=== PATIENT | male | born 1955 | race Caucasian/White ===

== ENCOUNTER 2022-10-21 18:44 | Inpatient (IN) ==
[2022-10-21] MEDS ORDERED: Lactated Ringers 1000 ml BAG 1,000 ML IV ONE ×3 (19:04→20:01)
[2022-10-21] MEDS ORDERED: cefTRIAXone 1 gm/50 mL D5W 1 GM/50 ML BAG IV ONE (19:16)
[2022-10-21] MEDS ORDERED: metroNIDAZOLE IV 500 MG/100ML 500 MG/100 ML BAG IVPB ONE (19:16)
[2022-10-21] MEDS ORDERED: Iodixanol (CONTRAST) 320 MG/ML 100 ML SDV IV ONE (19:27)
[2022-10-21 19:40] LABS: ABS Lymphocytes 0.8 10^3/ul (1.0-4.8); ABS Monocytes 0.6 10^3/ul (0-0.8); ABS Neutrophils 10.4 10^3/ul (1.5-7.7); Eosinophil % 0.1 %; Hematocrit 36 % (42-52); Hemoglobin 11.1 g/dL (14.0-18.0); Lymphocyte % 6.4 %; Mean Corpuscular HGB Conc 31 g/dL (31-36); Mean Corpuscular Hemoglobin 30 pg (27-31); Mean Corpuscular Volume 97 fL (80-94); Mean Platelet Volume 8.5 fL (7.4-10.4); Nucleated Red Blood Cells % 0.1; Platelet Count 175 10^3/uL (150-450); Red Blood Count 3.68 10^6 /uL (4.18-5.48); Red Cell Distribution Width 14 % (10-15); White Blood Count 11.8 10^3/uL (3.5-10.8)
[2022-10-21 19:58] LABS: ALT 20 U/L (7-52); AST 19 U/L (13-39); Albumin 3.1 g/dL (3.2-5.2); Albumin/Globulin Ratio 1.1 (1-3); Alcohol, S < 13 mg/dL (<13); Alkaline Phosphatase 122 U/L (35-149); Blood Urea Nitrogen 52 mg/dL (6-24); C Reactive Protein 218.73 mg/L (<8.01); CO2 Carbon Dioxide 18 mmol/L (22-32); Calcium 9.7 mg/dL (8.6-10.3); Chloride 106 mmol/L (101-111); Globulin 2.8 g/dL (2-4); Magnesium 2.8 mg/dL (1.9-2.7); Sodium 143 mmol/L (135-145); Total Protein 5.9 g/dL (6.4-8.9); eGFR CKD-EPI 30.2 (>60)
[2022-10-21] MEDS ORDERED: .Amiodarone 24HR ONLY IV Protocol Order Note IV ONE (20:00)
[2022-10-21] MEDS ORDERED: Amiodarone 150 mg IVPREMIX 150 MG/100 ML BAG IV ONE (20:00)
[2022-10-21 20:01] LABS: Anion Gap 19 mmol/L (2-11); Potassium 5.3 mmol/L (3.5-5.0)
[2022-10-21 20:04] LABS: High Sens Troponin Baseline 161 pg/mL (<20)
[2022-10-21] MEDS ORDERED: Amiodarone 360 MG IVPREMIX 360 MG/200 ML BAG IV SCH (20:10)
[2022-10-21 20:18] LABS: PCO2 Arterial 33 mmHg (35-45); PO2 Arterial 90 mmHg (80-100)
[2022-10-21] MEDS ORDERED: Dextrose 50% Syringe 50 ml 25 GM/50 ML SYRINGE IV PUSH PRN (20:23)
[2022-10-21 20:54] LABS: High Sensitivity Troponin 1 Hr 139 pg/mL (<20)
[2022-10-21] MEDS ORDERED: Insulin Infusion 100unit/100mL 100 UNIT/100 ML BAG IV SCH (21:00)
[2022-10-21 21:04] LABS: Glucose 834 mg/dL (70-100)
[2022-10-22] MEDS ORDERED: Vancomycin 1,000 MG in NS 0.9% 250 ml 250 ML IVPB ONE (00:39)
[2022-10-22] MEDS: NS 0.45% 1000 ml BAG 1,000 ML IV SCH ×5 (00:44→16:58)
[2022-10-22 00:45] LABS: Urine Appearance Slightly Cloudy; Urine Color Yellow
[2022-10-22 00:46] LABS: Urine Bilirubin Negative (Negative); Urine Glucose 3+ (>=1000 mg/dL) (Negative); Urine Ketones Negative (Negative); Urine Nitrite Negative (Negative); Urine Protein Negative (Negative); Urine Urobilinogen 0.2 (Negative) (Negative)
[2022-10-22 00:59] LABS: Glucose Confirmatory 419 mg/dL (70-100)
[2022-10-22 01:04] LABS: Urine Bacteria Absent (Absent); Urine Red Blood Cell 3+(>10/hpf) (Absent); Urine White Blood Cell 3+(>20/hpf) (Absent)
[2022-10-22 01:14] LABS: Calcium 8.8 mg/dL (8.6-10.3); Potassium 3.9 mmol/L (3.5-5.0); eGFR CKD-EPI 38.7 (>60)
[2022-10-22] MEDS ORDERED: Amiodarone 360 MG IVPREMIX 360 MG/200 ML BAG IV SCH (02:10)
[2022-10-22] MEDS: DOLUTEGRAVIR PO SCH ×2 (02:21→21:20)
[2022-10-22] MEDS: ABACAVIR PO SCH ×2 (02:21→21:20)
[2022-10-22] MEDS: LAMIVUDI PO SCH ×2 (02:21→21:20)
[2022-10-22 04:05] LABS: ABS Basophils 0.1 10^3/ul (0-0.2); ABS Eosinophils 0.1 10^3/ul (0-0.6); ABS Lymphocytes 1.5 10^3/ul (1.0-4.8); ABS Monocytes 0.6 10^3/ul (0-0.8); ABS Neutrophils 8.2 10^3/ul (1.5-7.7); Eosinophil % 0.5 %; Hematocrit 27 % (42-52); Hemoglobin 8.9 g/dL (14.0-18.0); Lymphocyte % 14.7 %; Mean Corpuscular HGB Conc 33 g/dL (31-36); Mean Corpuscular Hemoglobin 31 pg (27-31); Mean Corpuscular Volume 92 fL (80-94); Mean Platelet Volume 8.1 fL (7.4-10.4); Platelet Count 143 10^3/uL (150-450); Red Blood Count 2.89 10^6 /uL (4.18-5.48); Red Cell Distribution Width 14 % (10-15); White Blood Count 10.4 10^3/uL (3.5-10.8)
[2022-10-22] MEDS: Thiamine 100 MG/ML 2 ml VIAL 100 MG in NS 0.9% 50 ML 50 ML IV SCH (04:08)
[2022-10-22 04:12] LABS: INR 1.38 (0.88-1.18)
[2022-10-22 04:42] LABS: Calcium 8.7 mg/dL (8.6-10.3); Potassium 3.8 mmol/L (3.5-5.0); eGFR CKD-EPI 41.3 (>60)
[2022-10-22] MEDS ORDERED: Dextrose 50% Syringe 50 ml 25 GM/50 ML SYRINGE IV PUSH PRN (06:03)
[2022-10-22] MEDS ORDERED: Cefepime ADVAN 1 GM in NS 0.9% 50 ML 50 ML IVPB SCH (08:00)
[2022-10-22] MEDS ORDERED: D5W 1/2 NS 1000 ml BAG 1,000 ML IV SCH ×2 (08:00)
[2022-10-22 08:40] LABS: Calcium 8.2 mg/dL (8.6-10.3); Potassium 3.5 mmol/L (3.5-5.0); eGFR CKD-EPI 45.3 (>60)
[2022-10-22] MEDS: Multivitamins/Minerals TAB PO SCH (09:16)
[2022-10-22] MEDS: DULoxetine DR 30 mg CAP PO SCH (09:16)
[2022-10-22] MEDS: Cefepime 1 GM in Dextrose 1 GM/50 ML BAG IV SCH ×2 (10:25→20:49)
[2022-10-22] MEDS ORDERED: Potassium Chlor 20 meq TAB.ER PO ONE (12:28)
[2022-10-22] MEDS: Enoxaparin 80 MG/0.8 ML SYR SUBCUT SCH ×2 (12:31→23:23)
[2022-10-22 13:24] LABS: Calcium 8.1 mg/dL (8.6-10.3); Potassium 3.8 mmol/L (3.5-5.0); eGFR CKD-EPI 44.3 (>60)
[2022-10-22] MEDS ORDERED: KCL 20 MEQ/100 ML IVPREMIX 20 MEQ/100 ML BAG IV SCH (14:00)
[2022-10-22 17:37] LABS: Calcium 7.7 mg/dL (8.6-10.3); Potassium 3.7 mmol/L (3.5-5.0); eGFR CKD-EPI 48.5 (>60)
[2022-10-22] MEDS: Insulin GLARGINE 100 un/ml 10 ml VIAL SUBCUT SCH (21:00)
[2022-10-23 00:03] LABS: Calcium 7.5 mg/dL (8.6-10.3); Potassium 3.4 mmol/L (3.5-5.0); eGFR CKD-EPI 52.9 (>60)
[2022-10-23] MEDS: Potassium Chlor 20 meq TAB.ER PO ONE ×2 (00:59→01:17)
[2022-10-23] MEDS: Thiamine 100 MG/ML 2 ml VIAL 100 MG in NS 0.9% 50 ML 50 ML IV SCH (01:00)
[2022-10-23] MEDS: KCL 20 MEQ/100 ML IVPREMIX 20 MEQ/100 ML BAG IV SCH ×2 (01:22→03:14)
[2022-10-23 05:55] LABS: ABS Basophils 0.1 10^3/ul (0-0.2); ABS Eosinophils 0.3 10^3/ul (0-0.6); ABS Lymphocytes 1.5 10^3/ul (1.0-4.8); ABS Monocytes 0.5 10^3/ul (0-0.8); ABS Neutrophils 6.9 10^3/ul (1.5-7.7); Eosinophil % 2.8 %; Hematocrit 27 % (42-52); Hemoglobin 8.9 g/dL (14.0-18.0); Lymphocyte % 15.9 %; Mean Corpuscular HGB Conc 33 g/dL (31-36); Mean Corpuscular Hemoglobin 30 pg (27-31); Mean Corpuscular Volume 91 fL (80-94); Mean Platelet Volume 8.2 fL (7.4-10.4); Platelet Count 132 10^3/uL (150-450); Red Blood Count 2.92 10^6 /uL (4.18-5.48); Red Cell Distribution Width 14 % (10-15); White Blood Count 9.2 10^3/uL (3.5-10.8)
[2022-10-23 06:38] LABS: Calcium 7.8 mg/dL (8.6-10.3); Magnesium 1.8 mg/dL (1.9-2.7); Potassium 3.9 mmol/L (3.5-5.0); eGFR CKD-EPI 57.2 (>60)
[2022-10-23] MEDS ORDERED: KCL 10 MEQ/50 ML IVPREMIX 10 MEQ/50 ML BAG IV ONE (07:37)
[2022-10-23] MEDS ORDERED: Magnesium Sulfate 2 gm BAG 2 GM/50 ML BAG IVPB ONE (07:37)
[2022-10-23] MEDS: Multivitamins/Minerals TAB PO SCH (08:49)
[2022-10-23] MEDS: Cefepime 1 GM in Dextrose 1 GM/50 ML BAG IV SCH ×2 (08:49→22:21)
[2022-10-23] MEDS: DULoxetine DR 30 mg CAP PO SCH (08:49)
[2022-10-23] MEDS: Enoxaparin 80 MG/0.8 ML SYR SUBCUT SCH (10:21)
[2022-10-23] MEDS: DOLUTEGRAVIR PO SCH (22:22)
[2022-10-23] MEDS: LAMIVUDI PO SCH (22:22)
[2022-10-23] MEDS: ABACAVIR PO SCH (22:22)
[2022-10-23] MEDS: Insulin GLARGINE 100 un/ml 10 ml VIAL SUBCUT SCH (22:52)
[2022-10-24] MEDS: Thiamine 100 MG/ML 2 ml VIAL 100 MG in NS 0.9% 50 ML 50 ML IV SCH (03:25)
[2022-10-24 06:55] LABS: ABS Basophils 0.1 10^3/ul (0-0.2); ABS Eosinophils 0.2 10^3/ul (0-0.6); ABS Lymphocytes 1.4 10^3/ul (1.0-4.8); ABS Monocytes 0.4 10^3/ul (0-0.8); ABS Neutrophils 4.8 10^3/ul (1.5-7.7); Eosinophil % 3.3 %; Hematocrit 26 % (42-52); Hemoglobin 8.7 g/dL (14.0-18.0); Lymphocyte % 20.5 %; Mean Corpuscular HGB Conc 34 g/dL (31-36); Mean Corpuscular Hemoglobin 31 pg (27-31); Mean Corpuscular Volume 91 fL (80-94); Mean Platelet Volume 8.3 fL (7.4-10.4); Platelet Count 130 10^3/uL (150-450); Red Blood Count 2.85 10^6 /uL (4.18-5.48); Red Cell Distribution Width 14 % (10-15); White Blood Count 6.8 10^3/uL (3.5-10.8)
[2022-10-24] MEDS: Cefepime 1 GM in Dextrose 1 GM/50 ML BAG IV SCH (07:52)
[2022-10-24 08:01] LABS: Calcium 7.9 mg/dL (8.6-10.3); Magnesium 2.1 mg/dL (1.9-2.7); Potassium 3.8 mmol/L (3.5-5.0); eGFR CKD-EPI 74.7 (>60)
[2022-10-24] MEDS: Multivitamins/Minerals TAB PO SCH (08:58)
[2022-10-24] MEDS: DULoxetine DR 30 mg CAP PO SCH (08:58)
[2022-10-24 12:04] VITALS: BP 143/74
== END 2022-10-24 14:45 | disposition home or self-care (01) | DRG 974 ==
LOC: ED 18:44 → EDHOLD 22:41 → ICU 10-22 00:18
PROVIDERS: ADMIT Internal Medicine; ATTEND Internal Medicine